=== PATIENT | female | born 1990 | race Two or more races ===

== ENCOUNTER 2020-08-27 08:55 | Outpatient (CLI) | payer OTHER ==
[~2020-08-27 08:55] MED LIST: CIPRO500 MG PO; LEVSIN/SL0.125 MG PO; PROTONIX40 MG; PROTONIX40 MG PO; PYRIDIUM DS200 MG PO; REGLAN 10ML5 MG/ML; ZOFRAN4 MG PO
== END 2020-08-27 09:00 | disposition home or self-care (01) ==
LOC: LAB 08:55
PROVIDERS: ATTEND Internal Medicine Gastroenterology
DX: Z13.1 Encounter for screening for diabetes mellitus (principal); R10.84 Generalized abdominal pain; Z20.818 Contact with and (suspected) exposure to other bacterial communicable diseases; E03.8 Other specified hypothyroidism; D64.89 Other specified anemias; E78.49 Other hyperlipidemia; M81.8 Other osteoporosis without current pathological fracture; R79.82 Elevated C-reactive protein (CRP); D51.3 Other dietary vitamin B12 deficiency anemia; D52.0 Dietary folate deficiency anemia